=== PATIENT | female | born 1975 | race Caucasian/White ===

== ENCOUNTER 2024-02-17 13:47 | Outpatient (POV) | payer BC, SELFPAY ==
--- NOTE | 2024-02-17 15:38 | A.OFFVIS_ITS ---
HPI Data of Consult Patient: new to practice Consult date: 02/17/24 Requesting Physician: Radha Prather APRN Primary Care Provider: Mazin Kaminski MD Consult Narrative Reason for consult: Low back pain, bilateral hip pain, leg pain History of present illness: Ms. Bush is a 48 year old female who presents today as a new patient. She is a referral from [facility] PCP. Today she rates her pain a 10 out of 10. Patient states her pain is all throughout her low back that does radiate into her bilateral hips and down into her legs. She does describe this as a aching, throbbing sensation with numbness and tingling and does interfere with the patient's ability perform activities of daily living such as cooking and cleaning. Patient does state that this is been going on for longer than 6 months. She states she has been seeing a surgeon Dr. Sharp in send see Ortho who does want to do a lumbar fusion however she is currently trying to get insurance to approve it. Patient does state that they are wanting to do a fusion with hardware. She states that she has tried and failed conservative therapy including oral medications such as Tylenol and ibuprofen along with heat and ice and topicals. Patient has also used 3 different types of TENS unit as well as had injections and ablations in the past that stated that they were just very temporary only lasting a week to week and a half. Patient does have complaints that her legs frequently give out causing her to fall. Patient states that she has to rely on assistive devices such as a cart or a cane from time to time. Patient does have a stimulator for her bladder in place. Patient's Anshul has been reviewed. CC: Radha Prather APRN [facility] Disclaimer: The information contained in this section may have been updated after the patient was seen, as this information can be updated by other users. Medical History (Updated 02/17/24 @ 15:43 by Radha Prather APRN) Lumbar radiculopathy Social History Smoking Status: Unknown if ever smoked alcohol intake: never current occupational status: other Travel in the last 8 weeks: None Review of Systems Review of Systems Review of systems:: pertinent systems reviewed and negative unless documented below Review of systems (narrative): Review of Systems: General: No recent weight changes, no fever, no sleep disturbances Respiratory: No cough, no shortness of air, no recurring pulmonary infections Cardiovascular/peripheral vascular: No chest pain, no palpitations, no edema, no shortness of breath Gastrointestinal: No new onset incontinence, normal bowel movements reported Genitourinary: No new onset incontinence Musculoskeletal: Low back pain, bilateral hip pain, leg pain Psychiatric: [Normal mood/affect] Neurological: [Denies weakness in extremities], [denies balance issues] Meds Home Medications and Allergies New Prescriptions to Start Prescriptions: Objective Narrative: Physical Exam: General: Alert and oriented x3, no acute distress, pleasant and cooperative Lungs: Respirations even and unlabored, symmetrical chest expansion Eyes: PERRL Musculoskeletal: Flexion and extension of lumbar [spine] somewhat guarded secondary to pain, [antalgic gait noted] Neurological: Speech clear, no gross sensory deficit Additional findings Additional findings: Lumbar MRI without contrast 12/06/2023: Findings L4-L5: Stable mild facet hypertrophy. No interval disc bulge. No neural encroachment. L5-S1: Central disc bulge combined with facet hypertrophy with mild indentation of the thecal sac noted. Mild narrowing of the lateral recess is stable. Foramina remain patent. This level is stable from prior study. Assessment and Plan *Assessment and plan (1) Degenerative disc disease, lumbar: Status: Acute Category: Medical Code(s): M51.36 - Other intervertebral disc degeneration, lumbar region (2) Lumbar radiculopathy: Status: Acute Category: Medical Code(s): M54.16 - Radiculopathy, lumbar region Plan Patient was counseled that we are an interventional pain clinic and we do more injection therapy and/or spinal cord stimulator or pump trial. I did discuss with the patient that if she did not get significant relief with the prior injections that the stimulator or pump trial may be something that would provide more consistent relief. Risk and benefits were discussed with the patient and she does states she would like to proceed forward with the pump trial. Patient will be ordered a psychological evaluation and if she is deemed an appropriate candidate we will proceed forward with the pump trial at a later date. Patient has also been tried on multiple muscle relaxer such as baclofen and Flexeril and is currently on tizanidine. Patient states that it sometimes helps. Patient will be ordered a 2-week supply of Skelaxin 800 mg 3 times daily as needed. Patient was counseled to discontinue her tizanidine while she tries this medication. Patient will return to clinic in 1 month for reevaluation of symptoms and plan of care. Patient has been instructed to contact the clinic with any concerns before the next appointment. Dr. Rowan has reviewed this note and agrees with this plan of care. This note was dictated using voice recognition software and make contain errors or omissions. All injections are used with Lidocaine or Bupivacaine and Depo Medrol.
[2024-02-18 11:42] VITALS: BP 116/47; PULSE 64; RESP 18; O2SAT 97; BMI 34.7
== END 2024-02-17 23:59 | disposition home or self-care (01) ==
PROVIDERS: PCP Family Medicine; Visit Provider Nurse Practitioner Family
DX: M51.16 Intervertebral disc disorders with radiculopathy, lumbar region (principal); Z73.89 Other problems related to life management difficulty
CPT/HCPCS: 99202; G0463

== ENCOUNTER 2024-05-01 13:42 | Outpatient (POV) | payer BC, SELFPAY ==
[2024-05-01 13:52] VITALS: BP 150/76; PULSE 62; RESP 18; O2SAT 98; BMI 36.5
--- NOTE | 2024-05-01 14:49 | EXP.PAIN.SOA ---
[facility] Disclaimer: The information contained in this section may have been updated after the patient was seen, as this information can be updated by other users. Medical History (Updated 05/01/24 @ 14:52 by Radha Prather APRN) Vitamin D deficiency Depression Hypothyroidism Diabetes HTN (hypertension) Anxiety Lumbar radiculopathy Surgical History (Updated 02/18/24 @ 11:44 by Ifeoma Monreal RN) Surgical history unknown Family History (Updated 02/18/24 @ 11:44 by Ifeoma Monreal RN) Other Unknown family medical history Social History (Updated 02/18/24 @ 11:45 by Ifeoma Monreal RN) Smoking Status: Unknown if ever smoked alcohol intake: never current occupational status: unemployed Travel in the last 8 weeks: None Have you lived/traveled outside [place] in past 30 days?: No Contact w/someone who lives/traveled outside US past 30 days?: No Exposure to someone with infectious disease in past 14 days?: No Do you have a fever (greater than 100.4 F or 38 C)?: No Have you tested positive for COVID-19: No Exposed to someone with COVID-19 in past 14 days?: No Do you have a sore throat?: No Do you have a cough?: No Do you have any weakness?: No Do you have any diarrhea?: No Are you experiencing any unusual bleeding?: No Do you have any muscle aches/pain?: No Do you have any abdominal pain?: No Are you experiencing loss of taste or smell?: No PM Subjective & Objective Subjective Subjective:: Patient is a pleasant 49-year-old female who presents today for follow-up of her psychological evaluation and worsening pain. Today she rates her pain a 10 out of 10. She denies any new trauma or injury. She does state that she continues to have the chronic pain throughout her low back that does radiate down into her lower extremities. Patient does state that here lately the pain just feels like it is much worse and it goes from her mid back down and has been experiencing a little bit more symptoms into her right leg with numbness and tingling. She describes her pain as a sharp shooting pain and that it does feel like her leg is going to give out on her at any time. She does state due to this she has even contemplated getting a cane to help her with ambulation. Patient does state that she has tried conservative treatment oral medications, heat and ice, topicals, injections including epidurals in the past and would only get temporary relief. Patient has had at home stretching and exercise for longer than 12 weeks with no additional improvement. She does state that the Skelaxin we sent and did seem to help some and that she does go between the tizanidine and it for some improvement. She is asking whether or not we can do anything additional medication loving to help her with her pain. Patient denies any kidney issues or heart issues however states that she will occasionally see cardiology but it is only for her blood pressure medication about every 6 months or longer. Her Anshul has been reviewed and is appropriate. Review of Systems: General: No recent weight changes, no fever, no sleep disturbances Respiratory: No cough, no shortness of air, no recurring pulmonary infections Cardiovascular/peripheral vascular: No chest pain, no palpitations, no edema, no shortness of breath Gastrointestinal: No new onset incontinence, normal bowel movements reported Genitourinary: No new onset incontinence Musculoskeletal: Low back pain, leg pain Psychiatric: [Normal mood/affect] Neurological: [Denies weakness in extremities], [denies balance issues] Pain at rest (0-10 scale): 10 Objective Objective:: Physical Exam: General: Alert and oriented x3, no acute distress, pleasant and cooperative Lungs: Respirations even and unlabored, symmetrical chest expansion Eyes: PERRL Musculoskeletal: Flexion and extension of lumbar [spine] somewhat guarded secondary to pain, [antalgic gait noted] positive right leg raise Neurological: Speech clear, no gross sensory deficit Has patient had previous pain injection?: No Conservative treatment options previously tried: Home exercise plan Length of treatment: Longer than 12 weeks Meds Home Medications and Allergies Home Medications ?Medication ?Instructions ?Recorded ?Confirmed ?Type bupropion HCl 300 mg 24 hr tablet, 300 mg PO DAILY MOOD 02/17/24 05/01/24 History extended release clonazepam 1 mg tablet 1 mg PO DAILY . 02/17/24 05/01/24 History ergocalciferol (vitamin D2) 1,250 1 unit PO WEEKLY SUPPLIMENT 02/17/24 05/01/24 History mcg (50,000 unit) capsule ezetimibe 10 mg tablet 10 mg PO DAILY Cholesterol 02/17/24 05/01/24 History fluoxetine 40 mg capsule 40 mg PO DAILY MOOD 02/17/24 05/01/24 History insulin glargine 100 unit/mL (3 35 unit SQ DAILY Diabetes 02/17/24 05/01/24 History mL) subcutaneous pen (Lantus Solostar U-100 Insulin) levothyroxine 175 mcg tablet 175 mcg PO DAILY THYROID 02/17/24 05/01/24 History losartan 25 mg tablet 25 mg PO BID BLOOD PRESSURE 02/17/24 05/01/24 History metformin 500 mg tablet,extended 500 mg PO BID Diabetes 02/17/24 05/01/24 History release 24 hr metoprolol succinate 50 mg 50 mg PO DAILY BLOOD PRESSURE 02/17/24 05/01/24 History tablet,extended release 24 hr propranolol 10 mg tablet 10 mg PO QIDP PRN PANIC ATTACKS 02/17/24 05/01/24 History tiotropium bromide 2.5 2 puff inhalation DAILY Breathing 02/17/24 05/01/24 History mcg/actuation mist for inhalation Problems (Spiriva Respimat) New Prescriptions to Start Prescriptions: Allergies Allergy/AdvReac Type Severity Reaction Status Date / Time adhesive Allergy Rash Verified 02/17/24 15:55 varenicline (From Chantix) Allergy Rash Verified 02/17/24 15:55 clarithromycin AdvReac Other Verified 02/17/24 15:55 dulaglutide (From Trulicity) AdvReac Nausea Verified 02/17/24 15:55 empagliflozin (From AdvReac Other Verified 02/17/24 15:55 Jardiance) gabapentin AdvReac Other Verified 02/17/24 15:55 semaglutide (From Ozempic) AdvReac Nausea Verified 02/17/24 15:55 Sulfa (Sulfonamide AdvReac Other Verified 02/17/24 15:55 Antibiotics) Assessment and Plan *Assessment and plan (1) Degenerative disc disease, lumbar: Status: Acute Category: Medical Code(s): M51.369 - Other intervertebral disc degeneration, lumbar region without mention of lumbar back pain or lower extremity pain (2) Lumbar radiculopathy: Status: Acute Category: Medical Code(s): M54.16 - Radiculopathy, lumbar region (3) Chronic pain syndrome: Status: Acute Category: Medical Code(s): G89.4 - Chronic pain syndrome Plan Patient continues to experience significant pain that does radiate from her low back down into her bilateral lower extremities with the right leg being worse. Patient did have limited range of motion of her lumbar spine with a positive right leg raise during today's exam. I did discuss with patient that she may still benefit from a lumbar epidural however she states that she would always only gets a couple days worth of relief when she has had these in the past and did not find it beneficial. I did review over her psychological evaluation and she was deemed an appropriate candidate for the intrathecal pain pump trial. Risk and benefits were discussed with the patient and she would like to proceed forward with this plan of care. Patient has been seen by neurosurgery there at [facility] and she was submitted for a lumbar fusion with hardware however her insurance denied it saying it was not medically necessary. Patient does states she would like to proceed forward with the pump trial. Patient has tried and failed conservative therapy including continued at home stretching exercise for longer than 12 weeks. I will order the patient on compounded cream and also send in a 2-week dose of meloxicam 15 mg daily. Patient was counseled to discontinue all other NSAIDs while taking this medication and to take it with food to minimize GI upset. Patient will be scheduled for a intrathecal pain pump trial under fluoroscopy. Patient has been instructed to contact the clinic with any concerns before the next appointment. Dr. Rowan has reviewed this note and agrees with this plan of care. This note was dictated using voice recognition software and make contain errors or omissions. All injections are used with Lidocaine, Bupivacaine and Depo Medrol. Occasionally urine drug screen is needed to verify patient's compliance with our office pain contract. This is ordered based off specific treatments related to chronic pain with the potential to abuse certain medications.
== END 2024-05-01 23:59 | disposition home or self-care (01) ==
PROVIDERS: PCP Family Medicine; Visit Provider Anesthesiology
DX: M51.16 Intervertebral disc disorders with radiculopathy, lumbar region (principal); G89.4 Chronic pain syndrome
CPT/HCPCS: 99212; G0463

== ENCOUNTER 2024-06-19 12:41 | Outpatient (POV) | payer MEDICAID, SELFPAY ==
[2024-06-19 12:58] VITALS: BP 126/78; PULSE 68; RESP 16; O2SAT 97; BMI 35.4
--- NOTE | 2024-06-19 14:14 | A.OFFVIS_ITS ---
[facility] Disclaimer: The information contained in this section may have been updated after the patient was seen, as this information can be updated by other users. Medical History (Updated 06/19/24 @ 14:24 by Radha Prather APRN) Vitamin D deficiency Depression Hypothyroidism Diabetes HTN (hypertension) Anxiety Lumbar radiculopathy Surgical History Surgical history unknown Family History Other Unknown family medical history Social History Smoking Status: Unknown if ever smoked alcohol intake: never current occupational status: other Travel in the last 8 weeks: None PM Subjective & Objective Subjective Subjective:: Patient is a pleasant 49-year-old female who presents today for worsening pain. She rates her pain a 10 out of 10. Patient does state that she recently had a fall a couple days ago and really aggravated her overall back symptoms. Patient states she was getting out of her vehicle at home and the dog ended up tripping her where she was on ice and lost her balance falling hitting her entire right side. Patient states that she did go to [place] and had a lot of x-ray and CT imaging with no acute fractures. Patient states that she is experiencing chronic pain throughout her back that is constant and severe. She states it is interfering with her ability perform activities of daily living such as cooking and cleaning and even sleeping. Patient does state that she still wants to proceed forward with the pump trial however is interested if we can get this scheduled to soon as possible. Patient states that the meloxicam we prescribed she ended up being discontinued off of because her PCP started her on Celebrex. She states she really has not noticed much improvement. Patient states she has multiple different types of muscle relaxers and none of them have really seem to provide improvement. Patient is interested in any help we may be able to provide. Patient is a diabetic and states that oral steroids cause significant increase in her blood glucose. Patient is prescribed clonazepam from an outside provider. Her Anshul has been reviewed and is appropriate. Review of Systems: General: No recent weight changes, no fever, no sleep disturbances Respiratory: No cough, no shortness of air, no recurring pulmonary infections Cardiovascular/peripheral vascular: No chest pain, no palpitations, no edema, no shortness of breath Gastrointestinal: No new onset incontinence, normal bowel movements reported Genitourinary: No new onset incontinence Musculoskeletal: Low back pain Psychiatric: [Normal mood/affect] Neurological: [Denies weakness in extremities], [denies balance issues] Pain at rest (0-10 scale): 10 Objective Objective:: Physical Exam: General: Alert and oriented x3, no acute distress, pleasant and cooperative Lungs: Respirations even and unlabored, symmetrical chest expansion Eyes: PERRL Musculoskeletal: Flexion and extension of lumbar [spine] somewhat guarded secondary to pain, [antalgic gait noted] point tenderness along bilateral SIs with positive bilateral Yasmeen's, Jun's, Gaenslen's, compression and distraction exam Neurological: Speech clear, no gross sensory deficit Has patient had previous pain injection?: No Conservative treatment options previously tried: Home exercise plan Length of treatment: Longer than 12 weeks Meds Home Medications and Allergies Home Medications ?Medication ?Instructions ?Recorded ?Confirmed ?Type bupropion HCl 300 mg 24 hr tablet, 300 mg PO DAILY MOOD 02/17/24 06/19/24 History extended release clonazepam 1 mg tablet 1 mg PO DAILY . 02/17/24 06/19/24 History ergocalciferol (vitamin D2) 1,250 1 unit PO WEEKLY SUPPLIMENT 02/17/24 06/19/24 History mcg (50,000 unit) capsule ezetimibe 10 mg tablet 10 mg PO DAILY Cholesterol 02/17/24 06/19/24 History fluoxetine 40 mg capsule 40 mg PO DAILY MOOD 02/17/24 06/19/24 History insulin glargine 100 unit/mL (3 35 unit SQ DAILY Diabetes 02/17/24 06/19/24 History mL) subcutaneous pen (Lantus Solostar U-100 Insulin) levothyroxine 175 mcg tablet 175 mcg PO DAILY THYROID 02/17/24 06/19/24 History losartan 25 mg tablet 25 mg PO BID BLOOD PRESSURE 02/17/24 06/19/24 History metformin 500 mg tablet,extended 500 mg PO BID Diabetes 02/17/24 06/19/24 History release 24 hr metoprolol succinate 50 mg 50 mg PO DAILY BLOOD PRESSURE 02/17/24 06/19/24 History tablet,extended release 24 hr propranolol 10 mg tablet 10 mg PO QIDP PRN PANIC ATTACKS 02/17/24 06/19/24 History tiotropium bromide 2.5 2 puff inhalation DAILY Breathing 02/17/24 06/19/24 History mcg/actuation mist for inhalation Problems (Spiriva Respimat) meloxicam 15 mg tablet 15 mg PO DAILY #28 tabs 05/01/24 06/19/24 Rx New Prescriptions to Start Prescriptions: Allergies Allergy/AdvReac Type Severity Reaction Status Date / Time adhesive Allergy Rash Verified 02/17/24 15:55 varenicline (From Chantix) Allergy Rash Verified 02/17/24 15:55 clarithromycin AdvReac Other Verified 02/17/24 15:55 dulaglutide (From Trulicity) AdvReac Nausea Verified 02/17/24 15:55 empagliflozin (From AdvReac Other Verified 02/17/24 15:55 Jardiance) gabapentin AdvReac Other Verified 02/17/24 15:55 semaglutide (From Ozempic) AdvReac Nausea Verified 02/17/24 15:55 Sulfa (Sulfonamide AdvReac Other Verified 02/17/24 15:55 Antibiotics) Assessment and Plan *Assessment and plan (1) Bilateral sacroiliitis: Status: Acute Category: Medical Code(s): M46.1 - Sacroiliitis, not elsewhere classified Plan Patient has a longstanding history of chronic low back pain longer than 3 months. Patient is experiencing worsening pain along the low back and bilateral hips. They did have limited range of motion of the lumbar spine along with point tenderness along bilateral SI joints and a positive bilateral Yasmeen's, Jun's, Gaenslen's, compression and distraction exam. I did discuss with the patient that I do believe they would benefit from bilateral SI injections. Risk and benefits were discussed with the patient and they would like to proceed forward with this option. Patient has tried and failed conservative therapy including continued at home stretching exercise for longer than 12 weeks. Jami ent will be scheduled for bilateral SI injections under fluoroscopy. Patient is still in the process of getting scheduled for her intrathecal pain pump trial. We will continue to proceed forward with this option. Patient has been instructed to contact the clinic with any concerns before the next appointment. Dr. Rowan has reviewed this note and agrees with this plan of care. This note was dictated using voice recognition software and make contain errors or omissions. All injections are used with Lidocaine or Bupivacaine and Depo Medrol.
== END 2024-06-19 23:59 | disposition home or self-care (01) ==
LOC: SC.PAIN 12:41
PROVIDERS: PCP Family Medicine; Visit Provider Nurse Practitioner Family
DX: M46.1 Sacroiliitis, not elsewhere classified (principal); Z73.89 Other problems related to life management difficulty
CPT/HCPCS: 99212; G0463